=== PATIENT | male | born 1955 | race Caucasian/White ===

== ENCOUNTER 2017-05-20 13:10 | Emergency (ER) | payer MEDICAID ==
[~2017-05-20] VITALS: Ht 182.9 cm; Wt 103.0 kg
[~2017-05-20 13:10] MED LIST: ADVAIR HFA 230M12 GM INH; AMOXICILLIN 50500 MG PO; ATIVAN1 MG PO; AUGMENTIN 875875 MG PO; CEFUROXIME500 MG PO; CLONAZEPAM 0.50.5 M1 PO; FOLIC ACID1 MG PO; HYDROCODONE-AP1 EAC6; HYDROCODONE-AP1 EAC6 PO; LIPITOR 20 MG T20 M1 PO; LISINOPRIL20 MG PO; MELATONIN3 MG PO; METFORMIN HCL500 MG PO; MOBIC7.5 MG PO; NOHOMEMEDICATIONS; OXYCODONE HCL 55 MG PO; OXYCONTIN10 M1 PO; PERCOCET 10-321 EACH PO; PREDNISONE 10 M10 MG PO; PREDNISONE 20 M20 M1 PO; PREDNISONE 20 M20 MG PO; PROTONIX40 M1 PO; SINGULAIR 10 MG10 M1 PO; VENTOLIN HFA 1818 GM INH; VITAMIN B-1100 M1 PO
[2017-05-20] MEDS ORDERED: DUONEB 2.5-0.5 M3 ML INH (13:34)
[2017-05-20 13:54] LABS: HEMATOCRIT 41.7 % (42.0-52.0); HEMOGLOBIN 14.2 gm/dL (14.0-18.0); MCH 29.9 pg (26.0-34.0); MPV 6.6 fl. (7.2-11.1); NUCLEATED RBCS 0 /100WBC; PLATELET COUNT* 377 thou/uL (150-400); RBC 4.74 mil/uL (4.50-6.00); RDW-CV 13.4 % (10.5-14.5); WBC 13.2 thou/uL (4.0-11.0)
[2017-05-20 14:01] LABS: CALCIUM 9.5 mg/dL (8.5-10.1); CREATININE 0.8 mg/dL (0.6-1.3); POTASSIUM 4.3 mmol/L (3.5-5.1)
[2017-05-20 14:03] LABS: BE 3.3 mmol/L (-2 to +3); HCO3 26.7 mmol/L (22.0-26.0); PCO2 36.9 mmHg (35.0-45.0); PO2 77.2 mmHg (75.0-100.0); pH 7.477 (7.340-7.450)
[2017-05-20 14:05] LABS: ALBUMIN 3.4 g/dL (3.4-5.0); TOTAL BILIRUBIN 0.3 mg/dL (<0.1-1.0); TOTAL PROTEIN 7.1 g/dL (6.4-8.2)
[2017-05-20 14:14] LABS: ABSOLUTE EOSINOPHILS 1.6 thou/uL (0.0-0.7); ABSOLUTE LYMPHOCYTES 1.8 thou/uL (0.8-5.3); ABSOLUTE MONOCYTES 1.3 thou/uL (0.0-1.2); ABSOLUTE NEUTROPHILS 8.4 thou/uL (1.6-8.1); PLATELET ESTIMATE ADEQUATE
[2017-05-20] MEDS ORDERED: NICOTINE TRANSD21 M1 TOP (15:08)
[2017-05-20] MEDS ORDERED: NEURONTIN 300300 M1 PO (15:08)
[2017-05-20] MEDS ORDERED: NORCO 5-325 TA1 EAC1 PO (15:08)
[2017-05-20] MEDS ORDERED: NORCO 7.5-3251 EACH PO (15:13)
[2017-05-20 15:50] VITALS: BP 132/86
--- NOTE | 2017-05-21 17:40 | EKG ---
[place] [address] ELECTROCARDIOGRAM REPORT Name: ARIS ROY Room: [facility]#: [id number] Admission: 05/20/17 Attend Phys: Discharge: 05/20/17 Date of : 55 Report #: [id number] THIS REPORT FOR: //name// [facility] ED Test Date: 2017-05-20 Test Time: 13:59:39 Pat Name: ARIS ROY Department: Room: Gender: M Computer Tech: VIJAYA : 1955 Requested By: Eran Goetz Order Number: [id number] MD: Oswald Hillman Measurements Intervals [place] Rate: 95 P: 56 RI: 180 QRS: 67 QRSD: 102 T: 48 QT: 345 QTc: 434 Interpretive Statements Sinus rhythm Compared to ECG 03/31/2017 21:21:45 Atrial premature complex(es) no longer present Electronically Signed On 05-21-2017 17:40:03 PRINTED CIRCUIT BOARDS BEVELER by Oswald Hillman [email or web address] <ELECTRONICALLY SIGNED> By: Oswald Hillman MD, [facility] 05/21/17 1740 1359 1359 Oswald Hillman MD, FACC /EPI
== END 2017-05-20 15:53 | disposition home or self-care (01) ==
LOC: M.ERS 13:10
PROVIDERS: Physician Assistant
DX: J44.9 Chronic obstructive pulmonary disease, unspecified (principal); T58.8X1A Toxic effect of carbon monoxide from other source, accidental (unintentional), initial encounter; E78.5 Hyperlipidemia, unspecified; F17.210 Nicotine dependence, cigarettes, uncomplicated; Z86.19 Personal history of other infectious and parasitic diseases; Y92.89 Other specified places as the place of occurrence of the external cause

== ENCOUNTER 2017-05-27 18:20 | Inpatient (IN) | payer MEDICAID ==
[~2017-05-27] VITALS: Ht 182.9 cm; Wt 103.5 kg
[~2017-05-27 18:20] MED LIST changes: +DUONEB 2.5-0.5 M3 ML INH; +NEURONTIN 300300 M1 PO; +NICOTINE TRANSD21 M1 TOP; +NORCO 5-325 TA1 EAC1 PO; +NORCO 7.5-3251 EACH PO
[2017-05-27 18:23] VITALS: BP 136/93
[2017-05-27 18:48] LABS: HEMATOCRIT 47.1 % (42.0-52.0); HEMOGLOBIN 15.1 gm/dL (14.0-18.0); MCH 29.8 pg (26.0-34.0); MCHC 32.2 g/dL (28.0-37.0); MCV 92.7 fL (80.0-100.0); MPV 7.1 fl. (7.2-11.1); NUCLEATED RBCS 0 /100WBC; PLATELET COUNT* 435 thou/uL (150-400); RBC 5.08 mil/uL (4.50-6.00); RDW-CV 14.7 % (10.5-14.5)
[2017-05-27 18:57] LABS: ANION GAP 10 mmol/L (7-16); APTT 30.9 Seconds (25.0-31.3); BUN 10 mg/dL (7-18); CALCIUM 9.7 mg/dL (8.5-10.1); CHLORIDE 98 mmol/L (98-107); CO2 27 mmol/L (21-32); CREATININE 0.7 mg/dL (0.6-1.3); GLUCOSE 116 mg/dL (70-99); POTASSIUM 3.9 mmol/L (3.5-5.1); PROTIME 9.9 Seconds (9.20-11.50); SODIUM 135 mmol/L (136-145)
[2017-05-27 19:07] LABS: ALBUMIN 3.3 g/dL (3.4-5.0); ALKALINE PHOSPHATASE 111 U/L (46-116); LIPASE 109 U/L (73-393); MAGNESIUM 2.2 mg/dL (1.8-2.4); NT-PRO BRAIN NAT PEPTIDE 177 pg/mL (<300); SGOT 16 U/L (15-37); SGPT 21 U/L (30-65); TOTAL BILIRUBIN 0.2 mg/dL (<0.1-1.0); TOTAL PROTEIN 7.7 g/dL (6.4-8.2); TROPONIN-I LEVEL <0.06 ng/mL (<0.06)
[2017-05-27 19:14] LABS: ABSOLUTE EOSINOPHILS 1.4 thou/uL (0.0-0.7); ABSOLUTE LYMPHOCYTES 3.1 thou/uL (0.8-5.3); ABSOLUTE MONOCYTES 0.7 thou/uL (0.0-1.2); ABSOLUTE NEUTROPHILS 8.8 thou/uL (1.6-8.1)
[2017-05-27 19:15] LABS: PLATELET ESTIMATE ADEQUATE
[2017-05-27 19:18] LABS: INFLUENZA A ANTIGEN None Detected (None Detect); INFLUENZA B ANTIGEN None Detected (None Detect)
[2017-05-27 20:20] VITALS: BP 138/97
[2017-05-27 21:30] VITALS: BP 122/76
--- NOTE | 2017-05-28 09:00 | NUR ---
PT ARRIVED ON UNIT AT 2030. PT ORIENTED TO ROOM, CALL LIGHT SHOWN, FALL AGREEMENT WENT OVER. PT STATED UNDERSTANDING. ASSESSMENT DOCUMENTED. MEDS GIVEN PER E-MAR. PT STATED THAT HE WANTS A NICOTINE PATCH. PT STATED HE NEEDS PILL FOR SLEEPING AND CLONAPIN REORDERED FOR TONIGHT. DR NOTIFIED, ORDERS RECIEVED. PT STATES HIS DR ORDERED HIM MEDICATION FOR BLOOD PRESSURE AND CHOLESTEROL BUT PT STATES "I TAKE THOSE MEDS AND THROW THEM IN THE TRASH, I DON'T NEED THAT STUFF" PT STATES DR INCREASED HIS CLONAPIN DOSE FROM 0.5 TO 1MG. PT INFORMED HE WAS A FALL RISK BECAUSE HE STATED HE FELL 6 WEEKS AGO AND PT BECAME AGITATED. PT REFUSED YELLOW SOCKS AND BED ALARM. PT OBSERVED BY NURSE TAKING FALL RISK SIGN OFF OF DOOR. WILL CONTINUE TO MONITOR.
[2017-05-28 10:00] VITALS: BP 137/79
[2017-05-28 12:21] LABS: BE 3.4 mmol/L (-2 to +3); PCO2 38.1 mmHg (35.0-45.0); pH 7.469 (7.340-7.450)
[2017-05-28 12:27] LABS: PO2 58.1 mmHg (75.0-100.0)
[2017-05-28 14:29] VITALS: BP 117/70
--- NOTE | 2017-05-28 15:07 | NUR ---
SW met with pt to complete initial assessment, introduce self and SW role. Pt lives home alone in a mobile home and has some support in one of his sons, Omar. Pt shared that he does not want to go back to his previous PCP and wanted information on other doctors in the area. SW provided list of doctors and other community resources as well. SW to continue to follow to assist with any dc needs.
--- NOTE | 2017-05-28 16:39 | EKG ---
[place] [address] ELECTROCARDIOGRAM REPORT Name: ARIS ROY Room: [address] ADM IN [facility].#: [id number] Admission: 05/27/17 Attend Phys: Hang Vargas Discharge: Date of : 55 Report #: [id number] THIS REPORT FOR: //name// [facility] ED Test Date: 2017-05-27 Test Time: 18:56:14 Pat Name: ARIS ROY Department: Room: [facility] Gender: M Fur Storage Clerk: TASHA : 1955 Requested By: Glenn Wilson Order Number: [id number] MD: Omar Croft Measurements Intervals [place] Rate: 104 P: 66 [place]: 168 QRS: 77 QRSD: 92 T: 63 QT: 345 QTc: 454 Interpretive Statements Sinus tachycardia Compared to ECG 05/20/2017 13:59:39 Sinus rhythm no longer present Electronically Signed On 05-28-2017 16:38:51 PHARMACY TECHNICIAN PER DIEM by Omar Croft [email or web address] <ELECTRONICALLY SIGNED> By: Omar Croft MD, [facility] 05/28/17 1638 55 55 Omar Croft MD, FACC /EPI
--- NOTE | 2017-05-28 16:43 | NUR ---
PATIENT UP AND AMBULATING IN HALLWAY WITHOUT O2 FREQUENTLY. PATIENT EDUCATED ON THE NEED FOR 02 AT ALL TIMES. LIDODERM PATCH TO RIGHT SHOULDER, NICOTINE PATCH TO RIGHT ARM. IV SL, SCHED ABX INFUSED. PATIENT REFUSED HIS GET TODAY, DR. ONTIVEROS NOTIFIED AND ORDERED FOR TOMORROW, PATIENT STATED HE WOULD DO THE TEST TOMORROW. METFORMIN GIVEN WITH MEALS ORDERED. VICODIN GIVEN FOR RIB PAIN THIS SHIFT, GOOD RELIEF NOTED.
[2017-05-28 22:09] VITALS: BP 138/73
[2017-05-29 04:32] LABS: ABSOLUTE BASOPHILS 0.1 thou/uL (0.0-0.2); ABSOLUTE MONOCYTES 0.8 thou/uL (0.0-1.2); BASOPHILS 0.4 %; HEMATOCRIT 40.2 % (42.0-52.0); HEMOGLOBIN 13.6 gm/dL (14.0-18.0); LYMPHOCYTES 5.2 %; MCH 29.6 pg (26.0-34.0); MCHC 33.9 g/dL (28.0-37.0); MONOCYTES 4.4 %; MPV 6.9 fl. (7.2-11.1); NUCLEATED RBCS 0 /100WBC; PLATELET COUNT* 410 thou/uL (150-400); RDW-CV 13.9 % (10.5-14.5); WBC 18.9 thou/uL (4.0-11.0)
[2017-05-29 04:49] LABS: MCV 87.3 fL (80.0-100.0)
[2017-05-29 04:50] LABS: CALCIUM 9.8 mg/dL (8.5-10.1); CREATININE 0.7 mg/dL (0.6-1.3); POTASSIUM 4.6 mmol/L (3.5-5.1)
--- NOTE | 2017-05-29 06:12 | NUR ---
ASSESSMENT COMPLETE. PT SLEPT MOST OF THE NIGHT. PRN PAIN MEDICATIONS GIVEN TWICE DURING THE NIGHT. PT IS ON 4L PER NC. PT IS NONCOMPLIANT WITH KEEPING O2 ON AND WALKS HALLS REFUSING BED ALARM FOR FALL RISK. PT HAS IV IN LEFT FOREARM, SALINE LOCKED. PT SKIN INTACT. SEE ASSESSMENT AND VITALS FOR OTHER DETAILS. CALL LIGHT WITHIN REACH, WILL CONTINUE TO MONITOR
[2017-05-29 07:45] VITALS: BP 119/73
[2017-05-29] MEDS ORDERED: CEFDINIR300 MG PO (11:30)
[2017-05-29] MEDS ORDERED: TRAZODONE HCL50 MG PO (11:31)
[2017-05-29] MEDS ORDERED: PREDNISONE 10 M10 MG PO (11:32)
[2017-05-29] MEDS ORDERED: NEURONTIN 300M300 M2 PO (11:33)
[2017-05-29 11:35] VITALS: BP 119/73
--- NOTE | 2017-05-29 13:49 | NUR ---
WAS ASKED BY NURSING TO PROVIDE A CAB VOUCHER, PT IS DISCHARGING HOME AND DOENS'T HAVE A RIDE. HE ALSO NEEDS ASSIST GETTING A PORTABLE O2 TANK. PT STATES HE HAS O2 AND NEB THRU [facility], HE THINKS. CALL TO [facility]. SHE CONFIRMED THAT HE DOES HAVE O2 BUT THRU [facility]. SHE STATED SHE WOULD CONTACT [facility] AND WOULD HAVE TANK DELIVERED OMAR
--- NOTE | 2017-05-29 17:38 | NUR ---
PATIENT DISCHARGED TO HOME, CAB WAS CALLED FOR PATIENT BUT PATIENT CALLED A FRIEND INSTEAD. IV DC'D. PO ABX STARTED THIS SHIFT. 02 TANK SENT WITH PATIENT FROM [facility]. VERBALIZED UNDERSTANDING OF PAPERWORK AND SCRIPTS.
== END 2017-05-29 17:39 | disposition home or self-care (01) | DRG 191 ==
LOC: M.ERS 18:20 → M.TBA-ER 19:11 → M.3W 19:11
PROVIDERS: Family Medicine; ADMIT Internal Medicine
DX: J44.1 Chronic obstructive pulmonary disease with (acute) exacerbation (principal); E87.1 Hypo-osmolality and hyponatremia; G90.511 Complex regional pain syndrome I of right upper limb; E78.5 Hyperlipidemia, unspecified; F17.210 Nicotine dependence, cigarettes, uncomplicated; F41.9 Anxiety disorder, unspecified; E11.9 Type 2 diabetes mellitus without complications; I10 Essential (primary) hypertension; Z86.19 Personal history of other infectious and parasitic diseases; K74.60 Unspecified cirrhosis of liver

== ENCOUNTER 2017-10-13 18:01 | Inpatient (IN) | payer MEDICAID ==
[~2017-10-13] VITALS: Ht 182.9 cm; Wt 116.6 kg
[~2017-10-13 18:01] MED LIST changes: +CEFDINIR300 MG PO; +NEURONTIN 300M300 M2 PO; +TRAZODONE HCL50 MG PO
[2017-10-13 18:02] VITALS: BP 121/66
[2017-10-13] MEDS ORDERED: QUETIAPINE FUM100 MG PO (18:07)
[2017-10-13 18:47] LABS: HEMATOCRIT 43.5 % (42.0-52.0); HEMOGLOBIN 14.6 gm/dL (14.0-18.0); MCH 30.5 pg (26.0-34.0); MCHC 33.6 g/dL (28.0-37.0); MCV 90.9 fL (80.0-100.0); MPV 6.6 fl. (7.2-11.1); NUCLEATED RBCS 0 /100WBC; PLATELET COUNT* 348 thou/uL (150-400); RBC 4.78 mil/uL (4.50-6.00); RDW-CV 13.6 % (10.5-14.5); WBC 8.7 thou/uL (4.0-11.0)
[2017-10-13 19:06] LABS: ANION GAP 11 mmol/L (7-16); BUN 13 mg/dL (7-18); CALCIUM 9.3 mg/dL (8.5-10.1); CHLORIDE 100 mmol/L (98-107); CO2 26 mmol/L (21-32); GLUCOSE 104 mg/dL (70-99); POTASSIUM 4.1 mmol/L (3.5-5.1); SODIUM 137 mmol/L (136-145)
[2017-10-13 19:09] LABS: ABSOLUTE EOSINOPHILS 1.1 thou/uL (0.0-0.7); ABSOLUTE LYMPHOCYTES 2.8 thou/uL (0.8-5.3); ABSOLUTE NEUTROPHILS 3.8 thou/uL (1.6-8.1)
[2017-10-13 19:10] LABS: ALBUMIN 3.6 g/dL (3.4-5.0); ALKALINE PHOSPHATASE 66 U/L (46-116); LIPASE 90 U/L (73-393); NT-PRO BRAIN NAT PEPTIDE 118 pg/mL (<300); PLATELET ESTIMATE ADEQUATE; SGOT 23 U/L (15-37); SGPT 34 U/L (30-65); TOTAL BILIRUBIN 0.2 mg/dL (<0.1-1.0); TOTAL PROTEIN 7.5 g/dL (6.4-8.2); TROPONIN-I LEVEL <0.06 ng/mL (<0.06)
[2017-10-13 20:20] VITALS: BP 144/83
[2017-10-13 20:34] VITALS: BP 121/66
[2017-10-14] MEDS ORDERED: HYDROCODONE-AP1 EAC6 PO (04:23)
--- NOTE | 2017-10-14 05:30 | NUR ---
PT ADMITTED TO UNIT. PT ORIENTED TO ROOM, CALL LIGHT SHOWN, FALL AGREEMENT WENT OVER, PT STATED UNDERSTANDING. ASSESSMENT DOCUMENTED. MEDS GIVEN PER E-MAR. IV PATENT, ABX INFUSED. PT REPORTED RIGHT SHOULDER PAIN FROM FALL SEVERAL MONTHES AGO. PT ON 5L O2 PER NASAL CANULA. HOME MED LIST UPDATED. WILL CONTINUE WITH PLAN OF CARE.
[2017-10-14 08:31] VITALS: BP 102/63; BP 134/65
[2017-10-14 09:30] VITALS: BP 134/65
--- NOTE | 2017-10-14 11:22 | EKG ---
[place] [address] ELECTROCARDIOGRAM REPORT Name: ARIS ROY Room: [address] IN [facility]#: [id number] Admission: 10/13/17 Attend Phys: Sonia Dumont MD Discharge: Date of : 55 Report #: [id number] THIS REPORT FOR: //name// [facility] ED Test Date: 2017-10-13 Test Time: 18:26:29 Pat Name: ARIS ROY Department: Room: Gender: Nipple Machine Operator: Maribel SAMPSON : 1955 Requested By: Kevin Sam Order Number: [id number] MD: Omar Croft Measurements Intervals [place] Rate: 103 P: 28 [place]: 179 QRS: 72 QRSD: 104 T: 50 QT: 362 QTc: 474 Interpretive Statements Sinus tachycardia Low voltage, precordial leads Compared to ECG 05/27/2017 18:56:14 Low QRS voltage now present Electronically Signed On 10-14-2017 11:22:41 CDT by Omar Croft [email or web address] <ELECTRONICALLY SIGNED> By: Omar Croft MD, [facility] 10/14/17 1122 182 182 Omar Croft MD, [facility] /EPI
--- NOTE | 2017-10-14 12:00 | NUR ---
SW met with pt to complete initial assessment, introduce self, and SW role. Pt recognized SW from pt previous admission. Pt lives at home alone. Pt has oxygen through [facility]. Pt says he still has support in pt son Omar. Pt does not anticipate any needs at dc. SW to continue to follow to assist with safe dc planning.
[2017-10-14 16:00] VITALS: BP 153/88
[2017-10-14 21:26] VITALS: BP 151/87
--- NOTE | 2017-10-15 05:43 | NUR ---
PT SLEPT WELL OVERNIGHT. UP AD JANNIE IN MICHELLE AND ROOM AT HS, ENCOURAGED TO WEAR O2 4L AT ALL TIMES. PT IMPULSIVE, PLEASANT. LAC SL, SOLUMEDROL GIVEN SCHEDULED. HS ACCUCHECK 202, INSULIN GIVEN WITH SNACK. NO LABS THIS MORNING. HYDROCODONE GIVEN FOR CHRONIC SHOULDER PAIN WITH FAIR RESULT. REFUSING LOVENOX, EDUCATION GIVEN. ABLE TO USE CALL LITE AND MAKE NEEDS KNOWN. OCC CONGESTED COUGH HEARD OVERNIGHT. PT HOPEFUL FOR DISCHARGE HOME SOON. UP AD JANNIE TO BR TO VOID WITHOUT DIFFICULTY.
[2017-10-15 08:00] VITALS: BP 125/72
[2017-10-15] MEDS ORDERED: PREDNISONE 10 M10 MG PO (14:17)
[2017-10-15] MEDS ORDERED: CEFDINIR300 MG PO (14:17)
[2017-10-15 14:37] VITALS: BP 125/72
--- NOTE | 2017-10-15 15:55 | NUR ---
PATIENT A&OX4, ON 5L O2 VIA NC, IV LEFT AC SALINE LOCK. UP AD JANNIE, STEADY GAIT. NO C/O PAIN/N/V. PATIENT DISCHARGED TODAY. REVIEWED PAPERWORK WITH PATIENT, VERBALIZES UNDERSTANDING, NO FURTHER QUESTIONS AT THIS TIME. PATIENT UNABLE TO FIND A RIDE HOME, WAS PROVIDED WITH A TAXI VOTURE. PATIENT LEFT UNIT AT 1535 VIA W/C WITH NURSING STAFF WITH ALL BELONGINGS. NOTHING LEFT BEHIND. APPROPRIATE AND COOPORATIVE WITH CARE.
== END 2017-10-15 15:35 | disposition home or self-care (01) | DRG 192 ==
LOC: M.ERS 18:01 → M.3W 18:49 → M.TBA-ER 18:49 → M.3W 20:50
PROVIDERS: Emergency Medicine; ADMIT Internal Medicine
DX: J44.1 Chronic obstructive pulmonary disease with (acute) exacerbation (principal); E78.5 Hyperlipidemia, unspecified; Z87.891 Personal history of nicotine dependence; Z98.890 Other specified postprocedural states

== ENCOUNTER 2018-02-18 21:36 | Emergency (ER) | payer MEDICAID ==
[~2018-02-18] VITALS: Ht 152.4 cm; Wt 90.7 kg
[~2018-02-18 21:36] MED LIST changes: +QUETIAPINE FUM100 MG PO
[2018-02-18 22:11] LABS: ABSOLUTE BASOPHILS 0.1 thou/uL (0.0-0.2); ABSOLUTE EOSINOPHILS 0.5 thou/uL (0.0-0.7); ABSOLUTE LYMPHOCYTES 2.4 thou/uL (0.8-5.3); ABSOLUTE NEUTROPHILS 3.6 thou/uL (1.6-8.1); BASOPHILS 1.1 %; EOSINOPHILS 6.4 %; HEMOGLOBIN 14.3 gm/dL (14.0-18.0); LYMPHOCYTES 32.2 %; MCH 30.5 pg (26.0-34.0); MCHC 33.9 g/dL (28.0-37.0); MCV 89.9 fL (80.0-100.0); MONOCYTES 12.7 %; MPV 6.5 fl. (7.2-11.1); NUCLEATED RBCS 0 /100WBC; PLATELET COUNT* 364 thou/uL (150-400); POLYS 47.6 %; RBC 4.67 mil/uL (4.50-6.00); RDW-CV 13.8 % (10.5-14.5); WBC 7.5 thou/uL (4.0-11.0)
[2018-02-18 22:20] LABS: CALCIUM 9.3 mg/dL (8.5-10.1); CREATININE 0.9 mg/dL (0.6-1.3); POTASSIUM 3.5 mmol/L (3.5-5.1)
[2018-02-18 22:25] LABS: ALBUMIN 3.5 g/dL (3.4-5.0); TOTAL BILIRUBIN 0.1 mg/dL (<0.1-1.0); TOTAL PROTEIN 7.5 g/dL (6.4-8.2)
[2018-02-18 22:26] LABS: ALCOHOL 81 mg/dL (<10); SALICYLATE < 2.8 mg/dL (2.8-20.0)
[2018-02-18 22:29] LABS: ACETAMINOPHEN < 2 ug/mL (10-30)
[2018-02-18 22:46] LABS: URINE BILIRUBIN NEGATIVE (Negative); URINE BLOOD NEGATIVE (Negative); URINE CLARITY CLEAR; URINE COLOR YELLOW; URINE GLUCOSE-RANDOM NEGATIVE (Negative); URINE KETONES NEGATIVE (Negative); URINE LEUKOCYTES-REFLEX NEGATIVE (Negative); URINE NITRITE-REFLEX NEGATIVE (Negative); URINE PROTEIN NEGATIVE (Negative); URINE SPECIFIC GRAVITY <= 1.005 (1.005-1.030); URINE UROBILINOGEN 0.2 E.U./dl (0.2-1.0)
[2018-02-18 22:59] LABS: AMP/METHAMP Negative (Negative); BARBITURATES Negative (Negative); BENZODIAZEPINES Negative (Negative); COCAINE Negative (Negative); METHADONE Negative (Negative); OPIATES Negative (Negative); PCP Negative (Negative); THC Negative (Negative)
--- NOTE | 2018-02-19 11:05 | EKG ---
[place] [address] ELECTROCARDIOGRAM REPORT Name: ARIS ROY Room: [facility]#: [id number] Admission: 02/18/18 Attend Phys: Discharge: Date of : 55 Report #: [id number] THIS REPORT FOR: //name// [facility] ED Test Date: 2018-02-19 Test Time: 04:24:27 Pat Name: ARIS ROY Department: Room: Gender: Construction Or Leak Gang Laborer: MARTIN : 1955 Requested By: Cristela Hoffman Order Number: [id number] MD: Deonte Lao Measurements Intervals [place] Rate: 87 P: 39 FL: 187 QRS: 64 QRSD: 106 T: 53 QT: 401 QTc: 483 Interpretive Statements Sinus rhythm Supraventricular bigeminy Compared to ECG 10/13/2017 18:26:29 Atrial premature complex(es) now present Sinus tachycardia no longer present Electronically Signed On 02-19-2018 11:05:22 CDT by Deonte Lao [email or web address] <ELECTRONICALLY SIGNED> By: Deonte Lao MD, [facility] 02/19/18 1105 0424 3 Deonte Lao MD, FACC /EPI
[2018-02-19 14:47] VITALS: BP 154/77
== END 2018-02-19 14:47 ==
LOC: M.ERS 21:36
PROVIDERS: Emergency Medicine
DX: R45.851 Suicidal ideations (principal); J44.9 Chronic obstructive pulmonary disease, unspecified; E78.5 Hyperlipidemia, unspecified; Z87.891 Personal history of nicotine dependence

== ENCOUNTER 2018-06-19 11:15 | Emergency (ER) | payer MEDICAID ==
[~2018-06-19] VITALS: Ht 182.9 cm; Wt 121.1 kg
[2018-06-19 12:01] LABS: ABSOLUTE BASOPHILS 0.1 thou/uL (0.0-0.2); ABSOLUTE LYMPHOCYTES 1.8 thou/uL (0.8-5.3); ABSOLUTE MONOCYTES 0.8 thou/uL (0.0-1.2); BASOPHILS 0.4 %; HEMATOCRIT 43.3 % (42.0-52.0); HEMOGLOBIN 14.6 gm/dL (14.0-18.0); LYMPHOCYTES 13.4 %; MCH 30.4 pg (26.0-34.0); MCHC 33.6 g/dL (28.0-37.0); MCV 90.5 fL (80.0-100.0); MONOCYTES 6.1 %; MPV 6.5 fl. (7.2-11.1); NUCLEATED RBCS 0 /100WBC; PLATELET COUNT* 349 thou/uL (150-400); POLYS 80.1 %; RBC 4.79 mil/uL (4.50-6.00); RDW-CV 13.6 % (10.5-14.5); WBC 13.7 thou/uL (4.0-11.0)
[2018-06-19 12:09] LABS: ANION GAP 13 mmol/L (7-16); BUN 19 mg/dL (7-18); CALCIUM 9.4 mg/dL (8.5-10.1); CHLORIDE 99 mmol/L (98-107); CO2 22 mmol/L (21-32); CREATININE 0.9 mg/dL (0.6-1.3); GLUCOSE 116 mg/dL (70-99); POTASSIUM 4.6 mmol/L (3.5-5.1); SODIUM 134 mmol/L (136-145)
[2018-06-19 12:16] LABS: ALBUMIN 3.6 g/dL (3.4-5.0); ALKALINE PHOSPHATASE 74 U/L (46-116); SGOT 14 U/L (15-37); SGPT 25 U/L (30-65); TOTAL BILIRUBIN 0.3 mg/dL (<0.1-1.0); TOTAL PROTEIN 7.4 g/dL (6.4-8.2); TROPONIN-I LEVEL <0.06 ng/mL (<0.06)
[2018-06-19] MEDS ORDERED: LEVAQUIN 750 M750 MG PO (12:35)
[2018-06-19 12:41] VITALS: BP 144/74
--- NOTE | 2018-06-19 15:37 | EKG ---
[place] [address] ELECTROCARDIOGRAM REPORT Name: ARIS ROY Room: [facility]#: [id number] Admission: 06/19/18 Attend Phys: Discharge: 06/19/18 Date of : 55 Report #: [id number] THIS REPORT FOR: //name// [facility] ED Test Date: 2018-06-19 Test Time: 12:00:26 Pat Name: ARIS ROY Department: Room: Gender: M Design Center Consultant: Maribel VAZQUEZ : 1955 Requested By: Radu Jeffries Order Number: [id number] MD: Omar Croft Measurements Intervals [place] Rate: 90 P: 6 [place]: 143 QRS: 67 QRSD: 103 T: 57 QT: 354 QTc: 433 Interpretive Statements Sinus rhythm Atrial premature complexes Baseline wander in lead(s) II,III,aVF,V1,V2 Compared to ECG 02/19/2018 04:24:27 No significant changes Electronically Signed On 06-19-2018 15:37:13 FINISHER PLATE by Omar Croft [email or web address] <ELECTRONICALLY SIGNED> By: Omar Croft MD, [facility] 06/19/18 1537 1200 1200 Omar Croft MD, [facility] /EPI
== END 2018-06-19 12:43 | disposition home or self-care (01) ==
LOC: M.ERS 11:15
PROVIDERS: Emergency Medicine Emergency Medical Services
DX: J18.9 Pneumonia, unspecified organism (principal); F17.200 Nicotine dependence, unspecified, uncomplicated; J44.9 Chronic obstructive pulmonary disease, unspecified; E78.5 Hyperlipidemia, unspecified

== ENCOUNTER 2018-08-07 16:11 | Inpatient (IN) | payer MEDICAID ==
[~2018-08-07] VITALS: Ht 185.4 cm; Wt 122.9 kg
[~2018-08-07 16:11] MED LIST changes: +LEVAQUIN 750 M750 MG PO
[2018-08-07 16:14] VITALS: BP 126/52
[2018-08-07 17:53] LABS: HEMATOCRIT 47.7 % (42.0-52.0); HEMOGLOBIN 16.4 gm/dL (14.0-18.0); MCH 30.5 pg (26.0-34.0); MCHC 34.3 g/dL (28.0-37.0); MPV 6.8 fl. (7.2-11.1); NUCLEATED RBCS 0 /100WBC; PLATELET COUNT* 343 thou/uL (150-400); RBC 5.36 mil/uL (4.50-6.00); RDW-CV 14.4 % (10.5-14.5); WBC 19.4 thou/uL (4.0-11.0)
[2018-08-07 18:19] LABS: ALBUMIN 3.6 g/dL (3.4-5.0); ALKALINE PHOSPHATASE 69 U/L (46-116); ANION GAP 7 mmol/L (7-16); BUN 19 mg/dL (7-18); CALCIUM 9.5 mg/dL (8.5-10.1); CHLORIDE 97 mmol/L (98-107); CO2 31 mmol/L (21-32); CREATININE 0.9 mg/dL (0.6-1.3); GLUCOSE 127 mg/dL (70-99); NT-PRO BRAIN NAT PEPTIDE 374 pg/mL (<300); SGOT 16 U/L (15-37); SGPT 39 U/L (30-65); SODIUM 135 mmol/L (136-145); TOTAL BILIRUBIN 0.4 mg/dL (<0.1-1.0); TOTAL PROTEIN 7.4 g/dL (6.4-8.2); TROPONIN-I LEVEL <0.06 ng/mL (<0.06)
[2018-08-07 18:31] LABS: ABSOLUTE EOSINOPHILS 0.2 thou/uL (0.0-0.7); ABSOLUTE LYMPHOCYTES 3.9 thou/uL (0.8-5.3); ABSOLUTE MONOCYTES 1.4 thou/uL (0.0-1.2); PLATELET ESTIMATE ADEQUATE
[2018-08-07 20:36] VITALS: BP 135/78
[2018-08-07 20:40] VITALS: BP 114/77
[2018-08-07] MEDS ORDERED: OMEPRAZOLE 20 M20 M1 PO (22:06)
[2018-08-07] MEDS ORDERED: SEROQUEL 50 MG50 M2 PO (22:43)
[2018-08-07] MEDS ORDERED: CEFPODOXIME PR200 M1 PO (22:56)
[2018-08-08 01:38] LABS: URINE BILIRUBIN NEGATIVE (Negative); URINE BLOOD NEGATIVE (Negative); URINE CLARITY CLEAR; URINE COLOR YELLOW; URINE GLUCOSE-RANDOM TRACE (Negative); URINE KETONES NEGATIVE (Negative); URINE LEUKOCYTES NEGATIVE (Negative); URINE NITRITE NEGATIVE (Negative); URINE PROTEIN NEGATIVE (Negative); URINE SPECIFIC GRAVITY <= 1.005 (1.005-1.030); URINE UROBILINOGEN 0.2 E.U./dl (0.2-1.0)
[2018-08-08 04:00] VITALS: BP 130/85
[2018-08-08 04:38] LABS: ABSOLUTE LYMPHOCYTES 1.8 thou/uL (0.8-5.3); ABSOLUTE MONOCYTES 0.7 thou/uL (0.0-1.2); ABSOLUTE NEUTROPHILS 14.2 thou/uL (1.6-8.1); BASOPHILS 0.1 %; EOSINOPHILS 0.1 %; HEMATOCRIT 45.3 % (42.0-52.0); HEMOGLOBIN 15.1 gm/dL (14.0-18.0); LYMPHOCYTES 10.8 %; MCHC 33.4 g/dL (28.0-37.0); MCV 89.8 fL (80.0-100.0); MONOCYTES 4.4 %; MPV 7.1 fl. (7.2-11.1); NUCLEATED RBCS 0 /100WBC; PLATELET COUNT* 334 thou/uL (150-400); POLYS 84.6 %; RBC 5.05 mil/uL (4.50-6.00); RDW-CV 14.3 % (10.5-14.5); WBC 16.8 thou/uL (4.0-11.0)
[2018-08-08 05:04] LABS: APTT 26.3 Seconds (25.0-31.3); PROTIME 10.3 Seconds (9.20-11.50)
[2018-08-08 05:08] LABS: MAGNESIUM 2.1 mg/dL (1.8-2.4); PHOSPHORUS* 3.8 mg/dL (2.5-4.9); POTASSIUM 4.3 mmol/L (3.5-5.1)
--- NOTE | 2018-08-08 07:36 | NUR ---
RECEIVED REPORT AND ASSUMED CARE AT 2030. PT TRANSPORTED FROM ED TO ROOM 219. PT ORIENTATED TO ROOM ,CALL LIGHT, FALL POLICY. PT DENIES COMPLAINTS OF PAIN. ASSESSMENT COMPLETED CHARTED. ADMISSION COMPLETED BY NURSING. PT UP AD JANNIE IN ROOM, ON RA. PT HOME MEDICATION SENT TO PHARMACY. HOURLY ROUNDING COMPLETED AND ALL NEEDS MET.
[2018-08-08 08:00] VITALS: BP 149/92
--- NOTE | 2018-08-08 08:00 | NUR ---
AM ASSESSMENT COMPLETE, DEFER TO COMPUTER CHARTING. FINISHING AND SHIPPING SUPERVISOR TRACKING ST WITH PAC'S. DENIES PAIN, DIZZINESS AT THIS TIME. SOA NOTED WITH TALKING, LUNGS COARSE/DIMINISHED WITH WHEEZE - ROOM AIR 02 SAT 92% WHILE IN BED, HOB ELEVATED. ANXIOUS - REASSURANCE GIVEN. CALL LIGHT WITHIN REACH, WILL MONTIOR.
--- NOTE | 2018-08-08 10:39 | EKG ---
[place] [address] ELECTROCARDIOGRAM REPORT Name: ARIS ROY Room: [address] ADM IN R.#: [id number] Admission: 08/07/18 Attend Phys: Yajaira Parks MD Discharge: Date of : 55 Report #: [id number] THIS REPORT FOR: //name// [facility] ED Test Date: 2018-08-07 Test Time: 16:38:14 Pat Name: ARIS ROY Department: Room: [facility] Gender: M Telephone Betting Clerk: Maribel VAZQUEZ : 1955 Requested By: Monisha Novak Order Number: [id number] MD: Omar Croft Measurements Intervals [place] Rate: 109 P: 22 [place]: 151 QRS: 58 QRSD: 93 T: 47 QT: 320 QTc: 431 Interpretive Statements Sinus tachycardia Atrial premature complexes Compared to ECG 06/19/2018 12:00:26 Sinus rhythm no longer present Electronically Signed On 08-08-2018 10:39:20 CDT by Omar Croft [email or web address] <ELECTRONICALLY SIGNED> By: Omar Croft MD, [facility] 08/08/18 1039 1638 1638 Omar Croft MD, [facility] /EPI
[2018-08-08 12:00] VITALS: BP 129/90
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
[2018-08-08 15:53] VITALS: BP 123/87
[2018-08-08 16:08] LABS: HEPATITIS B SURFACE AG Negative (Negative)
--- NOTE | 2018-08-08 17:18 | NUR ---
MANUFACTURERS REPRESENTATIVE TRACKING WITH NO CHANGE IN RHYTHM. CIWA SCORE 5 AT THIS TIME, ANXIOUS AND IMPULSIVE DURING SHIFT - BUT COOPERATIVE, GIVEN SCHEUDLED PO ATIVAN PER ORDERS - PATIENT RESPONDING WELL TO ATIVAN LESS ANXIOUS. TOLERATING DIET. DENIES CHEST PAIN, DIZZINESS, SOA OR ANY DISCOMFORT AT THIS TIME. UP AMBULATING IN ROOM AND IN MICHELLE - GAIT STEADY. CALL LIGHT WTIHIN REACH, WILL MONITOR.
[2018-08-08 19:20] VITALS: BP 134/94
[2018-08-09] VITALS: BP 101/68
[2018-08-09 04:00] VITALS: BP 117/65
[2018-08-09 04:52] LABS: ABSOLUTE BASOPHILS 0.1 thou/uL (0.0-0.2); ABSOLUTE EOSINOPHILS 0.1 thou/uL (0.0-0.7); ABSOLUTE LYMPHOCYTES 3.6 thou/uL (0.8-5.3); ABSOLUTE MONOCYTES 1.3 thou/uL (0.0-1.2); BASOPHILS 0.4 %; EOSINOPHILS 0.6 %; HEMATOCRIT 42.6 % (42.0-52.0); HEMOGLOBIN 14.5 gm/dL (14.0-18.0); LYMPHOCYTES 22.4 %; MCH 30.5 pg (26.0-34.0); MCHC 34.1 g/dL (28.0-37.0); MCV 89.2 fL (80.0-100.0); MPV 6.6 fl. (7.2-11.1); NUCLEATED RBCS 0 /100WBC; PLATELET COUNT* 300 thou/uL (150-400); POLYS 68.6 %; RBC 4.77 mil/uL (4.50-6.00); RDW-CV 14.4 % (10.5-14.5); WBC 16.1 thou/uL (4.0-11.0)
--- NOTE | 2018-08-09 06:56 | NUR ---
VITALS WNL. SEE MAR. SEE CHARTING. HOURLY ROUNDING FOR SAFETY.
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
[2018-08-09 08:00] VITALS: BP 145/96
[2018-08-09] MEDS ORDERED: PREDNISONE 10 M10 MG PO (09:28)
[2018-08-09] MEDS ORDERED: CEFPODOXIME PR200 M1 PO (09:28)
[2018-08-09] MEDS ORDERED: VITAMIN B-1100 M1 PO (09:28)
[2018-08-09] MEDS ORDERED: PRENATAL PO (09:55)
[2018-08-09 09:57] VITALS: BP 145/96
--- NOTE | 2018-08-09 10:14 | NUR ---
08/09: Patient signed paper and was going to leave AMA but saw and was ok with discharge. Patient caught smoking in the stairwell, requested strongly he refraim. He is awaiting a taxi cab with voucher. Discharge paperwork complete. Patient home med will be sent with him.
== END 2018-08-09 10:49 | disposition home or self-care (01) | DRG 871 ==
LOC: M.ERS 16:11 → M.2W 18:51 → M.TBA-ER 18:51 → M.2W 19:44
PROVIDERS: Family Medicine; Nurse Practitioner Family; ADMIT Family Medicine
DX: A41.9 Sepsis, unspecified organism (principal); J15.6 Pneumonia due to other Gram-negative bacteria; F10.239 Alcohol dependence with withdrawal, unspecified; F41.9 Anxiety disorder, unspecified; J43.9 Emphysema, unspecified; K70.30 Alcoholic cirrhosis of liver without ascites; B19.20 Unspecified viral hepatitis C without hepatic coma; F39 Unspecified mood [affective] disorder; E78.5 Hyperlipidemia, unspecified; F17.210 Nicotine dependence, cigarettes, uncomplicated; F10.229 Alcohol dependence with intoxication, unspecified; Y90.9 Presence of alcohol in blood, level not specified; Z87.440 Personal history of urinary (tract) infections; Z99.81 Dependence on supplemental oxygen; Z79.899 Other long term (current) drug therapy; Z79.84 Long term (current) use of oral hypoglycemic drugs

== ENCOUNTER 2018-09-01 11:30 | Emergency (ER) | payer MEDICAID ==
[~2018-09-01] VITALS: Ht 182.9 cm; Wt 90.7 kg
[~2018-09-01 11:30] MED LIST changes: +CEFPODOXIME PR200 M1 PO; +OMEPRAZOLE 20 M20 M1 PO; +PRENATAL PO; +SEROQUEL 50 MG50 M2 PO
[2018-09-01] MEDS ORDERED: CLONIDINE0.1 PO ×2 (11:39→14:01)
[2018-09-01] MEDS ORDERED: VITAMIN B-1100 M1 PO ×2 (11:40→14:01)
[2018-09-01] MEDS ORDERED: ALBUTEROL2.5 MG/31 INH ×2 (11:42→14:01)
[2018-09-01 11:48] LABS: URINE BILIRUBIN NEGATIVE (Negative); URINE BLOOD NEGATIVE (Negative); URINE CLARITY CLEAR; URINE COLOR YELLOW; URINE GLUCOSE-RANDOM NEGATIVE (Negative); URINE KETONES NEGATIVE (Negative); URINE LEUKOCYTES-REFLEX NEGATIVE (Negative); URINE NITRITE-REFLEX NEGATIVE (Negative); URINE PROTEIN NEGATIVE (Negative); URINE SPECIFIC GRAVITY <= 1.005 (1.005-1.030); URINE UROBILINOGEN 0.2 E.U./dl (0.2-1.0)
[2018-09-01 11:54] LABS: ABSOLUTE EOSINOPHILS 0.2 thou/uL (0.0-0.7); ABSOLUTE LYMPHOCYTES 1.8 thou/uL (0.8-5.3); ABSOLUTE MONOCYTES 0.6 thou/uL (0.0-1.2); ABSOLUTE NEUTROPHILS 3.5 thou/uL (1.6-8.1); BASOPHILS 0.1 %; HEMATOCRIT 41.6 % (42.0-52.0); HEMOGLOBIN 14.2 gm/dL (14.0-18.0); LYMPHOCYTES 29.1 %; MCH 30.5 pg (26.0-34.0); MCV 89.7 fL (80.0-100.0); MONOCYTES 10.3 %; MPV 6.5 fl. (7.2-11.1); NUCLEATED RBCS 0 /100WBC; PLATELET COUNT* 388 thou/uL (150-400); POLYS 57.5 %; RBC 4.64 mil/uL (4.50-6.00); RDW-CV 14.7 % (10.5-14.5); WBC 6.1 thou/uL (4.0-11.0)
[2018-09-01 12:05] LABS: APTT 29.4 Seconds (25.0-31.3); INR 0.9; PROTIME 9.7 Seconds (9.20-11.50)
[2018-09-01 12:09] LABS: ALBUMIN 3.4 g/dL (3.4-5.0); ANION GAP 11 mmol/L (7-16); CHLORIDE 102 mmol/L (98-107); GLUCOSE 97 mg/dL (70-99); LIPASE 72 U/L (73-393); SODIUM 140 mmol/L (136-145)
[2018-09-01 12:25] LABS: ALKALINE PHOSPHATASE 81 U/L (46-116); BUN 9 mg/dL (7-18); CALCIUM 9.2 mg/dL (8.5-10.1); CO2 27 mmol/L (21-32); CREATININE 0.9 mg/dL (0.6-1.3); POTASSIUM 4.1 mmol/L (3.5-5.1); SGOT 16 U/L (15-37); SGPT 25 U/L (30-65); TOTAL BILIRUBIN 0.2 mg/dL (<0.1-1.0); TOTAL PROTEIN 7.5 g/dL (6.4-8.2); TROPONIN-I LEVEL <0.06 ng/mL (<0.06)
[2018-09-01] MEDS ORDERED: SEROQUEL 50 MG50 M2 PO (14:01)
[2018-09-01] MEDS ORDERED: METFORMIN HCL500 MG PO (14:01)
[2018-09-01] MEDS ORDERED: LISINOPRIL20 MG PO (14:01)
[2018-09-01] MEDS ORDERED: OMEPRAZOLE 20 M20 M1 PO (14:01)
[2018-09-01] MEDS ORDERED: QUETIAPINE FUM100 MG PO (14:01)
[2018-09-01] MEDS ORDERED: LIPITOR 20 MG T20 M1 PO (14:01)
[2018-09-01] MEDS ORDERED: PREDNISONE 20 M20 M1 PO (14:03)
[2018-09-01] MEDS ORDERED: VENTOLIN HFA 1818 GM INH (14:03)
[2018-09-01 14:22] VITALS: BP 113/75
--- NOTE | 2018-09-01 15:32 | EKG ---
[place] [address] ELECTROCARDIOGRAM REPORT Name: ARIS ROY [id number] Admission: 09/01/18 Attend Phys: Discharge: 09/01/18 Date of : 55 Report #: [id number] THIS REPORT FOR: //name// [facility] ED Test Date: 2018-09-01 Test Time: 11:48:21 Pat Name: ARIS ROY Department: Room: Gender: M Airport Baggage Screener: : 1955 Requested By: Glenn Wilson Order Number: [id number] MD: Omar Croft Measurements Intervals [place] Rate: 84 P: 8 [place]: 163 QRS: 66 QRSD: 98 T: 61 QT: 375 QTc: 444 Interpretive Statements Sinus rhythm Compared to ECG 08/07/2018 16:38:14 Sinus tachycardia no longer present Atrial premature complex(es) no longer present Electronically Signed On 09-01-2018 15:32:20 CDT by Omar Croft [email or web address] <ELECTRONICALLY SIGNED> By: Omar Croft MD, [facility] 09/01/18 1532 1148 1148 Omar Croft MD, FACC /EPI
== END 2018-09-01 14:22 | disposition home or self-care (01) ==
LOC: M.ERS 11:30
PROVIDERS: Family Medicine
DX: S00.83XA Contusion of other part of head, initial encounter (principal); R55 Syncope and collapse; F10.129 Alcohol abuse with intoxication, unspecified; Y90.4 Blood alcohol level of 80-99 mg/100 ml; J44.9 Chronic obstructive pulmonary disease, unspecified; E78.5 Hyperlipidemia, unspecified; Z87.891 Personal history of nicotine dependence; W18.39XA Other fall on same level, initial encounter; Y93.89 Activity, other specified; Y92.89 Other specified places as the place of occurrence of the external cause; Y99.8 Other external cause status